=== PATIENT | male | born 1960 | race Caucasian/White ===

== ENCOUNTER 2017-06-27 13:01 | Emergency (ER) | payer OTHER, BC ==
--- NOTE | 2017-06-27 15:15 | ER Document Report ---
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 He has had many head injuries over the past several years from falling off the trucks and other things. He had never been evaluated before. There is no records seen describing skull fracture or the possible age of the skull fracture. He has been having numbness to his left arm which is circumferential and does not go down as far as the wrist. He was prescribed meloxicam and baclofen on . He also reports he has been having blackout spells, he was advised that he should have taken himself off the truck by now and not come here for documentation to stop driving due to the dangerousness of this. TRAVEL OUTSIDE OF THE [place] 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 Skin: No symptoms reported Hematologic/Lymphatic: No symptoms reported Neurological/Psychological: Headaches Physical Exam - Vital signs Vitals: Temp Pulse Resp BP Pulse Ox 98.4 F 69 15 119/76 98 06/27/17 13:12 06/27/17 13:12 06/27/17 13:12 06/27/17 13:12 06/27/17 13:12 Interpretation: Normal - General General appearance: Appears well, Alert In distress: None - HEENT Head: Normocephalic, Tenderness - top of tenderness Eyes: Normal Pupils: PERRL Neck: Supple, Other - Left posterior cervical neck muscle is tender to palpate extending down into the trapezius muscle. - Respiratory Respiratory status: No respiratory distress Breath sounds: Normal - Cardiovascular Rhythm: Regular Heart sounds: Normal auscultation Murmur: No - Abdominal Inspection: Normal - Back Back: Tender - Left trapezius muscle is quite tender to palpate extending from the neck into the shoulder. I suspect this is the source of the paresthesias that he feels circumferentially in his left upper arm occasionally. - Extremities General upper extremity: Normal inspection General lower extremity: Normal inspection Arm: Other - There is no sensory deficit to the upper arm. Elbow: Tender - There is tenderness to palpate the left lateral epicondyle head consistent with tennis elbow diagnosis. - Neurological Neuro grossly intact: Yes - Psychological Associated symptoms: Normal affect, Normal mood - Skin Skin Temperature: Warm Skin Moisture: Dry Skin Color: Normal Course - Vital Signs Vital signs: Temp Pulse Resp BP Pulse Ox 98.4 F 69 15 119/76 98 06/27/17 13:12 06/27/17 13:12 06/27/17 13:12 06/27/17 13:12 06/27/17 13:12 - Laboratory Result Diagrams: 06/27/17 16:38 06/27/17 16:38 Laboratory results interpreted by me: 06/27/17 06/27/17 06/27/17 16:38 16:38 16:38 RBC 4.24 L Hgb 13.4 L Eosinophils % 6.1 H Carbon Dioxide 31 H Calcium 10.4 H Free T4 0.59 L Discharge - Discharge Clinical Impression: Pituitary cyst, Trapezius muscle spasm, Paresthesia of left arm Tennis elbow Qualifiers: Laterality: left Qualified Code(s): M77.12 - Lateral epicondylitis, left elbow Condition: Stable Disposition: HOME, SELF-CARE Additional Instructions: Tennis Elbow (Lateral Epicondylitis): You have lateral epicondylitis of the elbow, also called tennis elbow. This is a tendonitis at the point where the top-side forearm muscles attach to the outer side of the elbow. This is caused by repeated minor trauma or overuse , often during racquet sports or repetitive manual labor. In tennis, a faulty backhand stroke is usually the cause. Treat the tendonitis with antiinflammatory pain medication such as ibuprofen. Apply warmth to the area for 15 to 20 minutes, about 4 times a day. A wrap or "tennis elbow brace" that compresses the area may help. Steroid injections or surgery are occasionally required for severe cases that don't heal. Avoid or limit any activity that aggravates the pain. Stop racquet sports and golf for 4 to 6 weeks. Tennis players should make sure that they have a proper backhand after the injury heals. Return if you develop worsening pain, loss of mobility in the elbow, severe swelling, or numbness or weakness in the arm. //////////////////////////////////////////////////////////////////////////////// //////////////////////////////////////////////////////////// The numbness you are experiencing her left upper arm is probably related to the chronic spasm and tension in your left trapezius muscle. You should continue taking the meloxicam and baclofen for that problem. The tenderness on your lateral elbow is called lateral humeral epicondylitis which is a fancy term for tennis elbow. You should get a tennis elbow strap to wear on your forearm to help this area heal. Your MRI of the head showed a thin-walled cyst in the pituitary fossa. It is not causing any significant problems at this time. There is no explanation for your blackout spells found on the workup today. You should follow-up with a local neurologist to discuss her blackout spells and long-term follow-up of your pituitary cyst. The 2 local neurologists information will be listed below. You should stop driving immediately due to the blackout spells. Follow-up with a local medical doctor if your various problems are not improving. RETURN TO THE EMERGENCY ROOM IF ANY NEW OR WORSENING SYMPTOMS. Referrals: ARI BUNN MD [EMERITUS] - Follow up in 1 week ADRIN MONTOYA MD [ACTIVE STAFF] - Follow up in 1 week
--- NOTE | 2017-06-27 15:34 | RADIOLOGY REPORT (SQ) ---
EXAM DESCRIPTION: CT HEAD WITHOUT COMPLETED DATE/TIME: 06/27/2017 3:22 pm REASON FOR STUDY: Multiple head injuries, dx'ed FX skull, black outs COMPARISON: None. TECHNIQUE: Axial images acquired through the brain without intravenous contrast. Images reviewed wi th bone, brain and subdural windows. Images stored on PACS. All CT scanners at this facility use dose modulation, iterative reconstruction, and/or weight based d osing when appropriate to reduce radiation dose to as low as reasonably achievable (ALARA). [facility]: Dose Right [facility]: CareDose [facility]: Dose Right [facility]: Teradose 4D [facility]: Smart Evolver RADIATION DOSE: CT Rad equipment meets quality standard of care and radiation dose reduction techniq ues were employed. CTDIvol: 64.6 mGy. DLP: 1163 mGy-cm. mGy. LIMITATIONS: None. FINDINGS: VENTRICLES: Normal size and contour. CEREBRUM: No masses. No hemorrhage. No midline shift. No evidence for acute infarction. Normal gra y/white matter differentiation. No areas of low density in the white matter. CEREBELLUM: No masses. No hemorrhage. No alteration of density. No evidence for acute infarction. EXTRAAXIAL SPACES: No fluid collections. No masses. ORBITS AND GLOBE: No intra- or extraconal masses. Normal contour of globe without masses. CALVARIUM: No fracture. PARANASAL SINUSES: No fluid or mucosal thickening. SOFT TISSUES: No mass or hematoma. OTHER: Expanded sella turcica. Contents are low-attenuation with Hounsfield units of fluid density. IMPRESSION: MARKEDLY EXPANDED SELLA TURCICA WITH CONTENTS OF FLUID DENSITY. THIS COULD BE AN INCIDE NTAL EMPTY SELLA. RECOMMEND COMPARISON WITH PRIOR IMAGING STUDIES. IF CLINICALLY INDICATED, FOLLOW- UP MRI WITH ATTENTION TO THE PITUITARY/SELLA TURCICA MAY BE CONSIDERED. OTHERWISE UNREMARKABLE BRAIN CT WITHOUT CONTRAST. EVIDENCE OF ACUTE STROKE: NO. COMMENT: Quality ID # [id number]: Final reports with documentation of one or more dose reduction techniques (e.g., Automated exposure control, adjustment of the mA and/or kV according to patient size, use of iterative reconstruction technique) TECHNICAL DOCUMENTATION: JOB ID: [id number] [employer]- All Rights Reserved
[2017-06-27 17:05] LABS: ABSOLUTE BASOPHILS # (AUTO) 0.1 10^3/uL (0.0-0.2); ABSOLUTE EOSINOPHILS # (AUTO) 0.4 10^3/uL (0.0-0.6); ABSOLUTE LYMPHOCYTES (AUTO) 1.8 10^3/uL (0.5-4.7); ABSOLUTE MONOCYTES (AUTO) 0.4 10^3/uL (0.1-1.4); ABSOLUTE NEUT (AUTO) 3.2 10^3/uL (1.7-8.2); BASOPHILS % (AUTO) 1.4 % (0-2); EOSINOPHILS % (AUTO) 6.1 % (0-6); HEMATOCRIT 39.1 % (37.9-51.0); HEMOGLOBIN 13.4 g/dL (13.5-17.0); LYMPHOCYTES % (AUTO) 30.6 % (13-45); MEAN CORPUSCULAR HEMOGLOBIN 31.6 pg (27.0-33.4); MEAN CORPUSCULAR HGB CONC 34.3 g/dL (32.0-36.0); MEAN CORPUSCULAR VOLUME 92 fl (80-97); MONOCYTES % (AUTO) 7.1 % (3-13); PLATELET COUNT 258 10^3/uL (150-450); RED BLOOD COUNT 4.24 10^6/uL (4.35-5.55); RED CELL DISTRIBUTION WIDTH 12.9 % (11.5-14.0); SEGMENTED NEUTROPHILS % (AUTO) 54.8 % (42-78); TOTAL CELLS COUNTED % (AUTO) 100 %; WHITE BLOOD COUNT 5.9 10^3/uL (4.0-10.5)
[2017-06-27 17:25] LABS: ANION GAP 11 (5-19); BLOOD UREA NITROGEN 20 mg/dL (7-20); CALCIUM 10.4 mg/dL (8.4-10.2); CARBON DIOXIDE 31 mmol/L (22-30); CHLORIDE 102 mmol/L (98-107); GLUCOSE 89 mg/dL (75-110); POTASSIUM 4.4 mmol/L (3.6-5.0); SODIUM 143.6 mmol/L (137-145)
[2017-06-27 17:41] LABS: FREE T3 2.91 pg/mL (2.77-5.27); FREE T4 (FREE THYROXINE) 0.59 ng/dL (0.78-2.19)
--- NOTE | 2017-06-27 20:58 | RADIOLOGY REPORT (SQ) ---
EXAM DESCRIPTION: MRI HEAD COMBO COMPLETED DATE/TIME: 06/27/2017 8:09 pm REASON FOR STUDY: att. to pituitary COMPARISON: CT brain 06/27/2017 TECHNIQUE: Multiplanar imaging includes noncontrasted T1, T2, FLAIR, diffusion with ADC map and post gadolinium contrast T1 sequences. Images stored on PACS. Additional thin section sagittal and coronal T2, sagittal and coronal T1 precontrast and sagittal and coronal T1 postcontrast imaging through the sella and midline brain structures CONTRAST TYPE AND DOSE: 15 mL Multihance. RENAL FUNCTION: GFR > 60. LIMITATIONS: None. FINDINGS: PITUITARY FOSSA: The pituitary fossa is expanded by a thin walled pituitary cyst. Overall , this cyst measures 2.5 cm AP x 2 cm craniocaudad by 2.8 cm transverse, flattens the pituitary gland against the floor and rightward lateral edge of the sella. The sella is expanded inferiorly. No ma ss effect on the optic chiasm. Slight deviation of the pituitary infundibulum to the right of midlin e. No significant mass effect on cavernous sinuses. No gross encephalocele protruding into the sphe noid sinus. CSF SPACES: Normal in size and contour. No hemorrhage. CEREBRUM: Sulci and gyri normal in size and contour. Normal white matter signal on FLAIR imaging. No evidence of hemorrhage, mass, or extraaxial fluid collection. No abnormal enhancement post contrast. POSTERIOR FOSSA: No signal alteration. No hemorrhage. No edema, masses, or mass effect. Internal nde tory canals, cerebellopontine angles, mastoids normal. No enhancing lesions. No abnormal enhancement post contrast. DIFFUSION IMAGING: Negative for acute or subacute infarction. ORBITS: No masses. Globes normal. PARANASAL SINUSES: No fluid levels. Mucosa normal. OTHER: No other significant finding. IMPRESSION: No MR evidence of acute intracranial hemorrhage, acute ischemic change. No mass effect or midline shift. 10 wall pituitary cyst in the anterior lobe with expansion of the sella. No significant mass effect on the optic chiasm or impingement on the suprasellar cistern or cavernous sinuses. EVIDENCE OF ACUTE STROKE: NO. TECHNICAL DOCUMENTATION: JOB ID: [id number]- All Rights Reserved
[2017-06-27 21:17] VITALS: BP 119/75
== END 2017-06-27 21:31 | disposition home or self-care (01) ==
LOC: ER 13:01
DX: S09.90XA Unspecified injury of head, initial encounter (principal); E23.6 Other disorders of pituitary gland; M62.838 Other muscle spasm; R20.2 Paresthesia of skin; M77.12 Lateral epicondylitis, left elbow; X58.XXXA Exposure to other specified factors, initial encounter; Y99.0 Civilian activity done for income or pay; Z88.0 Allergy status to penicillin; Z91.030 Bee allergy status
CPT/HCPCS: 99284; 36415; 84439; 85025; 80048; 84481; 70553; 70450; A9577

== ENCOUNTER → 2018-10-19 | Outpatient (CLI) | payer OTHER ==
--- NOTE | 2018-10-19 09:43 | RADIOLOGY REPORT (SQ) ---
EXAM DESCRIPTION: KNEE LEFT 3 VIEWS COMPLETED DATE/TIME: 10/19/2018 9:33 am REASON FOR STUDY: PAIN IN LEFT KNEE Z13.1 ENCOUNTER FOR SCREENING FOR DIABETES MELLITUS Z12.5 ENCO UNTER FOR SCREENING FOR MALIGNANT NEOPLASM OF PROS Z13.220 ENCOUNTER FOR SCREENING FOR LIPOID DISORD ERS COMPARISON: None. NUMBER OF VIEWS: Three views. TECHNIQUE: AP, lateral, and sunrise patella radiographic images acquired of the left knee. LIMITATIONS: None. FINDINGS: MINERALIZATION: Normal. BONES: No acute fracture or dislocation. No worrisome bone lesions. No significant osteophytes. JOINT: No effusion. No chondrocalcinosis. OTHER: No other significant finding. IMPRESSION: NEGATIVE STUDY OF THE LEFT KNEE. NO EXPLANATION FOR PAIN. TECHNICAL DOCUMENTATION: JOB ID: [id number] [employer]- All Rights Reserved Reading location - IP/workstation name: [email or web address]
[2018-10-19 10:20] LABS: ALANINE AMINOTRANSFERASE 16 U/L (21-72); ALBUMIN 3.5 g/dL (3.5-5.0); ALKALINE PHOSPHATASE 38 U/L (38-126); ANION GAP 10 (5-19); ASPARTATE AMINO TRANSFERASE 18 U/L (17-59); BILIRUBIN,DIRECT 0.2 mg/dL (0.0-0.4); BILIRUBIN,TOTAL 0.4 mg/dL (0.2-1.3); BLOOD UREA NITROGEN 15 mg/dL (7-20); CALCIUM 9.5 mg/dL (8.4-10.2); CARBON DIOXIDE 28 mmol/L (22-30); CHLORIDE 105 mmol/L (98-107); CHOLESTEROL 175.62 mg/dL (0-200); GLUCOSE 86 mg/dL (75-110); POTASSIUM 5.1 mmol/L (3.6-5.0); SODIUM 143.3 mmol/L (137-145); TOTAL PROTEIN 6.3 g/dL (6.3-8.2); TRIGLYCERIDES 117 mg/dL (<150)
[2018-10-19 10:31] LABS: DIRECT LDL 110 mg/dL (<100)
== END ==
LOC: OD 09:06
PROVIDERS: ATTEND Family Medicine
DX: M25.562 Pain in left knee (principal); Z13.1 Encounter for screening for diabetes mellitus; Z12.5 Encounter for screening for malignant neoplasm of prostate; Z13.220 Encounter for screening for lipoid disorders
CPT/HCPCS: 36415; 80053; 80061; 84153